=== PATIENT | female | born 1985 | race Caucasian/White ===

== ENCOUNTER 2022-11-15 12:00 | Outpatient (CLI) | payer OTHER ==
--- NOTE | 2022-11-15 16:12 | XRAY Report ---
PROCEDURE: Chest 2 View X-Ray INDICATIONS: WHEEZING TECHNIQUE: 2 views of the chest were acquired. COMPARISON: None. FINDINGS: Surgical changes and devices: None. Lungs and pleura: No pleural effusions or pneumothorax. Lungs are clear. Mediastinum: Mediastinal contours appear normal. Heart size is normal. Bones and chest wall: No suspicious bony lesions. Overlying soft tissues appear unremarkable. IMPRESSION: No acute cardiopulmonary process. Reviewed by: Trang Brothers MD on 11/15/2022 4:11 PM PDT Approved by: Trang Brothers MD on 11/15/2022 4:11 PM PDT Station ID: [id number]
== END 2022-11-15 12:15 | disposition home or self-care (01) ==
LOC: DI.N 12:00
PROVIDERS: ATTEND Nurse Practitioner
DX: R06.2 Wheezing (principal)